=== PATIENT | female | born 1985 | race Caucasian/White ===

== ENCOUNTER → 2017-12-15 | Outpatient (CLI) | payer BC ==
[~2017-12-15] MED LIST: AMOX875 PO; ASPI325 PO; B Complete1 EACH PO; BIRTHCONTROL; Bactrim Ds Tab1 EACH PO; CLIN300 PO; CRUTCH4 USE; CYCL10 PO; FLAX PO; HYDACE5 PO; KETO10 PO; LAMO50 PO; METF500C PO; METO50 PO; NAPR500 PO; OXYACE5T PO; PENVK500 PO; PROM25 PO; RANI150 PO; RXHYD5325 PO; RXHYDACE PO; RXTRAM50 PO; TRAM50 PO; Ultram50 MG PO; Women's Daily1 EACH PO; XARELTO10 MG PO
[2017-12-15 15:50] LABS: BASOPHILS ABSOLUTE AUTO 0.03 K/mm3 (0.00-0.23); BASOPHILS PERCENT AUTO 0 % (0-2); EOSINOPHILS ABSOLUTE AUTO 0.19 K/mm3 (0.00-0.68); EOSINOPHILS PERCENT AUTO 3 % (0-6); Hematocrit 38.8 % (33.0-51.0); Hemoglobin 11.7 g/dL (11.5-16.0); IMMATURE GRAN ABSOLUTE AUTO 0.03 K/mm3 (0.00-0.10); IMMATURE GRAN PERCENT AUTO 0 % (0-1); LYMPHOCYTES ABSOLUTE AUTO 1.88 K/mm3 (0.84-5.20); LYMPHOCYTES PERCENT AUTO 25 % (21-46); MONOCYTES ABSOLUTE AUTO 0.35 K/mm3 (0.16-1.47); MONOCYTES PERCENT AUTO 5 % (4-13); Mean Corpuscular HGB 24.3 pg (26.0-34.0); Mean Corpuscular HGB Conc 30.2 g/dL (31.5-36.5); Mean Corpuscular Volume 81 fL (80-100); Mean Platelet Volume 10.2 fL (9.1-12.4); NEUTROPHILS ABSOLUTE AUTO 4.94 K/mm3 (1.96-9.15); NEUTROPHILS PERCENT AUTO 67 % (41-73); Platelet Count 353 K/mm3 (150-400); RDW Coefficient Variation 15.4 % (11.7-14.2); RDW Standard Deviation 44.6 fL (35.1-46.3); Red Blood Cell Count 4.82 M/mm3 (3.80-5.20); White Blood Cell Count 7.42 K/mm3 (4.00-11.30)
[2017-12-15 18:36] LABS: Alanine Aminotransfer (ALT/SGP 26 U/L (12-78); Albumin, Blood 3.5 g/dL (3.4-5.0); Alk Phos 109 U/L (50-136); Anion Gap 6 mmol/L (6-16); Aspartate Aminotrans (AST/SGOT 17 U/L (12-37); Bilirubin, Total 0.3 mg/dL (0.1-1.0); Blood Urea Nitrogen 10 mg/dL (8-24); Bun/Creatinine Ratio 15.1 (12.0-20.0); CHOL/HDL RATIO 4.2; CO2, Blood 28 mmol/L (21-32); Calcium, Blood 8.4 mg/dL (8.5-10.1); Chloride, Blood 106 mmol/L (98-108); Cholesterol 173 mg/dL (50-200); Creatinine, Blood 0.66 mg/dL (0.40-1.00); Free Thyroxine 1.06 ng/dL (0.70-1.60); Globulin, Blood 3.4 g/dL (2.2-4.0); Glomerular Filtration Rate >60 (60-); Glucose, Blood 105 mg/dL (70-99); HDL Cholesterol 41 mg/dL (>39); LDL/HDL RATIO 2.8; Low Density Lipoprotein Chol 116 mg/dL (0-110); Potassium, Blood 4.4 mmol/L (3.5-5.5); Sodium, Blood 140 mmol/L (136-145); Total Protein, Blood 6.9 g/dL (6.4-8.2); Triglycerides 79 mg/dL (30-140); Very Low Density Lipoprot Chol 15 mg/dL (6-28)
== END ==
LOC: LAB SHORT 10:01
PROVIDERS: Nurse Practitioner Family
DX: Z13.1 Encounter for screening for diabetes mellitus (principal); D50.9 Iron deficiency anemia, unspecified; R73.09 Other abnormal glucose
CPT/HCPCS: 80053; 80061; 82728; 83036; 84439; 84443; 85025

== ENCOUNTER → 2018-12-26 | Outpatient (CLI) | payer BC ==
[2018-12-26 12:37] LABS: Percent Saturation 12.3 % (15.0-50.0)
== END | disposition home or self-care (01) ==
LOC: LAB 12:10 → LAB SHORT 12:10
PROVIDERS: Nurse Practitioner Family
DX: R79.89 Other specified abnormal findings of blood chemistry (principal)
CPT/HCPCS: 82607; 82728; 83540; 83550

== ENCOUNTER → 2020-01-10 | Outpatient (CLI) | payer BC, OTHER ==
[~2020-01-10] MED LIST changes: +PROG100 PO
[2020-01-17 11:09] LABS: COTININE None Detected (.); NICOTINE None Detected (.)
== END | disposition home or self-care (01) ==
LOC: LAB SHORT 14:07 → OLS 14:07 → EDSTATUS 01-08 10:45 → LAB FUT 01-08 10:45
PROVIDERS: Surgery
DX: E66.01 Morbid (severe) obesity due to excess calories (principal); Z68.41 Body mass index [BMI] 40.0-44.9, adult
CPT/HCPCS: G0480

== ENCOUNTER 2020-04-22 10:19 | Day surgery (SDC) | payer BC, OTHER ==
[~2020-04-22] VITALS: Ht 177.8 cm; Wt 127.8 kg
== END 2020-04-22 12:00 | disposition home or self-care (01) ==
LOC: ORSCSDS 10:19
PROVIDERS: Internal Medicine Gastroenterology
PROC: 0DB68ZX Excision of Stomach, Via Natural or Artificial Opening Endoscopic, Diagnostic (ICD-10-PCS; principal; 2020-04-22 11:45)
DX: Z01.818 Encounter for other preprocedural examination (principal); R00.0 Tachycardia, unspecified; K22.2 Esophageal obstruction; G47.30 Sleep apnea, unspecified; E66.01 Morbid (severe) obesity due to excess calories; Z68.41 Body mass index [BMI] 40.0-44.9, adult; E11.9 Type 2 diabetes mellitus without complications; Z87.891 Personal history of nicotine dependence; Z79.84 Long term (current) use of oral hypoglycemic drugs; Z79.899 Other long term (current) drug therapy
CPT/HCPCS: 82947; 88305; 88342; J2704; J7120

== ENCOUNTER 2020-09-01 09:23 | Inpatient (IN) | payer BC ==
[~2020-09-01] VITALS: Ht 177.8 cm; Wt 114.3 kg
[~2020-09-01 09:23] MED LIST changes: +CENTRUM SILVER1 EAC2 PO; +METF500 PO; -METF500C PO; +Percocet 5-3251 EACH PO; +VITAMIN D325 MC3 PO; +Vitamin B Comple1 EA PO; +XARELTO20 MG PO
[2020-09-01 10:44] LABS: BASOPHILS ABSOLUTE AUTO 0.04 K/mm3 (0.00-0.23); BASOPHILS PERCENT AUTO 0 % (0-2); EOSINOPHILS ABSOLUTE AUTO 0.26 K/mm3 (0.00-0.68); EOSINOPHILS PERCENT AUTO 2 % (0-6); Hemoglobin 10.4 g/dL (11.5-16.0); IMMATURE GRAN ABSOLUTE AUTO 0.06 K/mm3 (0.00-0.10); IMMATURE GRAN PERCENT AUTO 0 % (0-1); LYMPHOCYTES ABSOLUTE AUTO 0.76 K/mm3 (0.84-5.20); LYMPHOCYTES PERCENT AUTO 6 % (21-46); MONOCYTES ABSOLUTE AUTO 0.58 K/mm3 (0.16-1.47); MONOCYTES PERCENT AUTO 4 % (4-13); Mean Corpuscular HGB Conc 30.6 g/dL (31.5-36.5); Mean Corpuscular Volume 85 fL (80-100); Mean Platelet Volume 9.5 fL (9.1-12.4); NEUTROPHILS ABSOLUTE AUTO 11.69 K/mm3 (1.96-9.15); NEUTROPHILS PERCENT AUTO 87 % (41-73); Platelet Count 310 K/mm3 (150-400); RDW Coefficient Variation 13.7 % (11.7-14.2); RDW Standard Deviation 42.9 fL (35.1-46.3); White Blood Cell Count 13.39 K/mm3 (4.00-11.30)
[2020-09-01 10:56] LABS: Alanine Aminotransfer (ALT/SGP 18 U/L (12-78); Albumin, Blood 3.6 g/dL (3.4-5.0); Albumin/Globulin Ratio 0.9 (0.8-1.8); Alk Phos 101 U/L (50-136); Anion Gap 8 mmol/L (6-16); Aspartate Aminotrans (AST/SGOT 11 U/L (12-37); Bilirubin, Total 0.7 mg/dL (0.1-1.0); Blood Urea Nitrogen 11 mg/dL (8-24); Bun/Creatinine Ratio 16.1 (12.0-20.0); CO2, Blood 23 mmol/L (21-32); Calcium, Blood 8.9 mg/dL (8.5-10.1); Chloride, Blood 109 mmol/L (98-108); Creatinine, Blood 0.69 mg/dL (0.40-1.00); Glomerular Filtration Rate >60 (60-); Glucose, Blood 127 mg/dL (70-99); Potassium, Blood 3.8 mmol/L (3.5-5.5); Sodium, Blood 140 mmol/L (136-145); Total Protein, Blood 7.6 g/dL (6.4-8.2)
[2020-09-01] MEDS ORDERED: XARELTO20 MG PO (11:42)
[2020-09-01 13:50] LABS: BASOPHILS ABSOLUTE AUTO 0.03 K/mm3 (0.00-0.23); BASOPHILS PERCENT AUTO 0 % (0-2); EOSINOPHILS ABSOLUTE AUTO 0.17 K/mm3 (0.00-0.68); EOSINOPHILS PERCENT AUTO 1 % (0-6); Hematocrit 31.8 % (33.0-51.0); Hemoglobin 9.6 g/dL (11.5-16.0); IMMATURE GRAN PERCENT AUTO 1 % (0-1); LYMPHOCYTES ABSOLUTE AUTO 1.31 K/mm3 (0.84-5.20); LYMPHOCYTES PERCENT AUTO 10 % (21-46); MONOCYTES ABSOLUTE AUTO 0.56 K/mm3 (0.16-1.47); MONOCYTES PERCENT AUTO 4 % (4-13); Mean Corpuscular HGB 25.9 pg (26.0-34.0); Mean Corpuscular HGB Conc 30.2 g/dL (31.5-36.5); Mean Corpuscular Volume 86 fL (80-100); Mean Platelet Volume 9.3 fL (9.1-12.4); NEUTROPHILS ABSOLUTE AUTO 11.27 K/mm3 (1.96-9.15); NEUTROPHILS PERCENT AUTO 84 % (41-73); Platelet Count 306 K/mm3 (150-400); RDW Coefficient Variation 13.7 % (11.7-14.2); RDW Standard Deviation 43.3 fL (35.1-46.3); Red Blood Cell Count 3.71 M/mm3 (3.80-5.20); White Blood Cell Count 13.44 K/mm3 (4.00-11.30)
[2020-09-01 14:32] LABS: Alanine Aminotransfer (ALT/SGP 23 U/L (12-78); Albumin, Blood 3.1 g/dL (3.4-5.0); Albumin/Globulin Ratio 0.8 (0.8-1.8); Alk Phos 101 U/L (50-136); Anion Gap 9 mmol/L (6-16); Aspartate Aminotrans (AST/SGOT 8 U/L (12-37); Bilirubin, Total 0.6 mg/dL (0.1-1.0); Blood Urea Nitrogen 11 mg/dL (8-24); Bun/Creatinine Ratio 14.8 (12.0-20.0); CO2, Blood 25 mmol/L (21-32); Calcium, Blood 8.5 mg/dL (8.5-10.1); Chloride, Blood 108 mmol/L (98-108); Creatinine, Blood 0.74 mg/dL (0.40-1.00); Globulin, Blood 3.8 g/dL (2.2-4.0); Glomerular Filtration Rate >60 (60-); Glucose, Blood 124 mg/dL (70-99); Potassium, Blood 3.6 mmol/L (3.5-5.5); Sodium, Blood 142 mmol/L (136-145); Total Protein, Blood 6.9 g/dL (6.4-8.2)
[2020-09-01 14:42] LABS: C-REACTIVE PROTEIN, EXT RANGE >19.000 mg/dL (0.000-0.300)
--- NOTE | 2020-09-01 17:42 | NUR ---
GRACE ARDON IN TO SEE PT AT ABOUT 1550, WOUND HAS PURLENT DRAINAGE. SURGICAL SITE REDRESSED BY REVA. PLAN FOR PT NPO AT THIS TIME IN ANTICIPATION FOR I&D.
--- NOTE | 2020-09-01 17:45 | NUR ---
AT 1658 PT ORAL TEMP 103.1. TORADOL AND PERCOCET GIVEN. DR. DOMINIQUE NOTIFIED, SEE NEW ORDER FOR HOSPITALIST. DR. JACQUES IN TO SEE PT AT ABOUT 1710. ANTIBIOTIC STARTED. PT TEMP CURRENTLY 101.2, PT STATED "FEELING BETTER". WILL CTM.
[2020-09-01 18:39] LABS: Percent Saturation 4.2 % (15.0-50.0)
[2020-09-02 03:57] LABS: BASOPHILS ABSOLUTE AUTO 0.03 K/mm3 (0.00-0.23); BASOPHILS PERCENT AUTO 0 % (0-2); EOSINOPHILS ABSOLUTE AUTO 0.51 K/mm3 (0.00-0.68); EOSINOPHILS PERCENT AUTO 4 % (0-6); Hematocrit 28.6 % (33.0-51.0); Hemoglobin 8.6 g/dL (11.5-16.0); IMMATURE GRAN ABSOLUTE AUTO 0.07 K/mm3 (0.00-0.10); IMMATURE GRAN PERCENT AUTO 1 % (0-1); LYMPHOCYTES ABSOLUTE AUTO 1.72 K/mm3 (0.84-5.20); LYMPHOCYTES PERCENT AUTO 14 % (21-46); MONOCYTES ABSOLUTE AUTO 1.15 K/mm3 (0.16-1.47); MONOCYTES PERCENT AUTO 9 % (4-13); Mean Corpuscular HGB 25.7 pg (26.0-34.0); Mean Corpuscular HGB Conc 30.1 g/dL (31.5-36.5); Mean Corpuscular Volume 86 fL (80-100); Mean Platelet Volume 9.6 fL (9.1-12.4); NEUTROPHILS ABSOLUTE AUTO 9.07 K/mm3 (1.96-9.15); NEUTROPHILS PERCENT AUTO 72 % (41-73); Platelet Count 275 K/mm3 (150-400); RDW Coefficient Variation 13.6 % (11.7-14.2); RDW Standard Deviation 42.7 fL (35.1-46.3); Red Blood Cell Count 3.34 M/mm3 (3.80-5.20); White Blood Cell Count 12.55 K/mm3 (4.00-11.30)
[2020-09-02 04:16] LABS: Alanine Aminotransfer (ALT/SGP 31 U/L (12-78); Albumin, Blood 2.7 g/dL (3.4-5.0); Albumin/Globulin Ratio 0.7 (0.8-1.8); Alk Phos 103 U/L (50-136); Anion Gap 7 mmol/L (6-16); Aspartate Aminotrans (AST/SGOT 20 U/L (12-37); Bilirubin, Total 0.6 mg/dL (0.1-1.0); Blood Urea Nitrogen 13 mg/dL (8-24); Bun/Creatinine Ratio 17.8 (12.0-20.0); CO2, Blood 26 mmol/L (21-32); Calcium, Blood 8.2 mg/dL (8.5-10.1); Chloride, Blood 108 mmol/L (98-108); Creatinine, Blood 0.73 mg/dL (0.40-1.00); Globulin, Blood 3.8 g/dL (2.2-4.0); Glomerular Filtration Rate >60 (60-); Glucose, Blood 113 mg/dL (70-99); Potassium, Blood 3.5 mmol/L (3.5-5.5); Sodium, Blood 141 mmol/L (136-145); Total Protein, Blood 6.5 g/dL (6.4-8.2)
--- NOTE | 2020-09-02 06:40 | NUR ---
PT T-MAX 101.5, OTHER VSS. DRESSING CHANGED X1, WOUND DRNG SS PURULANT FLUID. PT NPO POST MIDNIGHT FOR PLAN FOR I&D TODAY. PAIN MGD PER EMAR W/REP RELIEF. PT UP OOB INDEP, MERLE WELL. IVF AND ABX CONT PER ORDERS.
--- NOTE | 2020-09-02 15:43 | NUR ---
PT TAKEN TO DAY SURGERY FOR PROCEDURE, SALINE LOCKED, ALL JEWELERY REMOVED AND LEFT IN SPECIMEN CUP IN ROOM, PT KEPT CELL PHONE STATING HER WOULD GET IT FROM HER IN PRE-OP AREA.
--- NOTE | 2020-09-02 16:05 | NUR ---
History, Chart, Medications and Allergies reviewed before start of procedure.Lungs clear T/O to Auscultation. Patient confirms NPO status and agrees with scheduled surgery. Pre-Op teaching done. Pt verbalizes understanding. Patient States Post-Procedure ride home has been arranged. THE PATIENT WAS BROUGTH TO D/S FROM HER ROOM FOR HER PROCEDURE.
--- NOTE | 2020-09-02 18:16 | NUR ---
09/02/20 181 Deo Asencio PT ON SCHEDULED ANTIBIOTICS
--- NOTE | 2020-09-02 19:10 | NUR ---
PT BACK FROM PACU, INITIAL POST OP VITALS COMPLETE & STABLE, PT REPORTS PAIN TOLERABLE, OFFERING CLEAR LIQUIDS, WOUND VAC IN PLACE W/ NO LEAKS.
[2020-09-02 20:26] LABS: Vancomycin, Trough 11.5 ug/mL (5.0-10.0)
[2020-09-03 04:40] LABS: BASOPHILS ABSOLUTE AUTO 0.01 K/mm3 (0.00-0.23); BASOPHILS PERCENT AUTO 0 % (0-2); EOSINOPHILS PERCENT AUTO 0 % (0-6); Hematocrit 27.7 % (33.0-51.0); Hemoglobin 8.3 g/dL (11.5-16.0); IMMATURE GRAN ABSOLUTE AUTO 0.03 K/mm3 (0.00-0.10); IMMATURE GRAN PERCENT AUTO 0 % (0-1); LYMPHOCYTES ABSOLUTE AUTO 0.94 K/mm3 (0.84-5.20); LYMPHOCYTES PERCENT AUTO 13 % (21-46); MONOCYTES ABSOLUTE AUTO 0.18 K/mm3 (0.16-1.47); MONOCYTES PERCENT AUTO 3 % (4-13); Mean Corpuscular HGB 25.6 pg (26.0-34.0); Mean Corpuscular Volume 86 fL (80-100); Mean Platelet Volume 9.6 fL (9.1-12.4); NEUTROPHILS ABSOLUTE AUTO 5.99 K/mm3 (1.96-9.15); NEUTROPHILS PERCENT AUTO 84 % (41-73); Platelet Count 286 K/mm3 (150-400); RDW Coefficient Variation 13.5 % (11.7-14.2); RDW Standard Deviation 42.5 fL (35.1-46.3); Red Blood Cell Count 3.24 M/mm3 (3.80-5.20); White Blood Cell Count 7.15 K/mm3 (4.00-11.30)
--- NOTE | 2020-09-03 05:03 | NUR ---
SHIFT SUMMARY POD#1. AAOX4. DISCOMFORT CONTROLLED WITH 2 NORCO Q4H + TORADOL X1. NO NAUSEA/EMESIS. WOUND VAC TO LEFT HIP C/D/I, SCANT AMOUNT SS DRAINAGE IN TUBE. PPP, DENIES N/T BLE, MOVES TOES WELL. UP TO RESTROOM SBA WITH FWW, TOLERATES WELL. GOOD PO INTAKE + OUTPUT. IVF + ABX PER ORDERS. PT CURRENTLY RESTING IN BED WITH CALL LIGHT IN REACH.
[2020-09-03 05:17] LABS: Anion Gap 8 mmol/L (6-16); Blood Urea Nitrogen 13 mg/dL (8-24); Bun/Creatinine Ratio 21.6 (12.0-20.0); CO2, Blood 24 mmol/L (21-32); Calcium, Blood 8.6 mg/dL (8.5-10.1); Chloride, Blood 110 mmol/L (98-108); Glomerular Filtration Rate >60 (60-); Glucose, Blood 130 mg/dL (70-99); Potassium, Blood 4.2 mmol/L (3.5-5.5); Sodium, Blood 142 mmol/L (136-145)
--- NOTE | 2020-09-03 17:18 | NUR ---
SHIFT SUMMARY L HIP I&D POD1, A/O X4, VSS, WOUND VAC IN PLACE OVER INCISION, SMALL AMT OF SS DRAINAGE DURING SHIFT, TOLERATING PO, VOIDING WELL, AMBULATING W/ 1 PERSON STANDBY ASSIST, NO POST OP BM YET, ADMINISTERING BOWEL CARE PER ORDERS, PAIN WELL CONTROLLED PER EMAR. CALL LIGHT IN REACH, WILL CONTINUE TO MONITOR AND REPORT TO ONCOMING NOC RN.
[2020-09-03 20:33] LABS: Vancomycin, Trough 19.4 ug/mL (5.0-10.0)
--- NOTE | 2020-09-04 04:36 | NUR ---
SHIFT ASSESMENT PT A/O X4, IND IN ROOM. WOUND VAC IN PLACE, FOAM COMPRESSED. PT TOLERATING PO INTAKE AND VOIDING. REPORTS NO BM IN A FEW DAYS; BOWEL CARE PER ORDERS. PT HAS BEEN USING CPAP AT NIGHT. POWERGLIDE PLACED THIS SHIFT PT HAS HAD MULTIPLE IV'S FAIL THIS HOSPITAL STAY. PAIN MANAGED WITH PO PAIN MED AND TORADOL PER ORDERS.
[2020-09-04 05:17] LABS: BASOPHILS ABSOLUTE AUTO 0.04 K/mm3 (0.00-0.23); BASOPHILS PERCENT AUTO 1 % (0-2); EOSINOPHILS ABSOLUTE AUTO 0.34 K/mm3 (0.00-0.68); EOSINOPHILS PERCENT AUTO 5 % (0-6); Hematocrit 25.6 % (33.0-51.0); Hemoglobin 7.7 g/dL (11.5-16.0); IMMATURE GRAN ABSOLUTE AUTO 0.02 K/mm3 (0.00-0.10); IMMATURE GRAN PERCENT AUTO 0 % (0-1); LYMPHOCYTES ABSOLUTE AUTO 2.84 K/mm3 (0.84-5.20); LYMPHOCYTES PERCENT AUTO 42 % (21-46); MONOCYTES ABSOLUTE AUTO 0.33 K/mm3 (0.16-1.47); MONOCYTES PERCENT AUTO 5 % (4-13); Mean Corpuscular HGB 25.8 pg (26.0-34.0); Mean Corpuscular HGB Conc 30.1 g/dL (31.5-36.5); Mean Corpuscular Volume 86 fL (80-100); Mean Platelet Volume 9.3 fL (9.1-12.4); NEUTROPHILS ABSOLUTE AUTO 3.14 K/mm3 (1.96-9.15); NEUTROPHILS PERCENT AUTO 47 % (41-73); NRBC ABSOLUTE 0.02 K/mm3 (0.00-0.02); NRBC Auto 0.3 /100 WBC (0.0-0.2); Platelet Count 309 K/mm3 (150-400); RDW Coefficient Variation 13.6 % (11.7-14.2); RDW Standard Deviation 42.9 fL (35.1-46.3); Red Blood Cell Count 2.98 M/mm3 (3.80-5.20); White Blood Cell Count 6.71 K/mm3 (4.00-11.30)
[2020-09-04 05:47] LABS: Alanine Aminotransfer (ALT/SGP 29 U/L (12-78); Albumin, Blood 2.6 g/dL (3.4-5.0); Albumin/Globulin Ratio 0.7 (0.8-1.8); Alk Phos 95 U/L (50-136); Anion Gap 5 mmol/L (6-16); Aspartate Aminotrans (AST/SGOT 8 U/L (12-37); Bilirubin, Total 0.2 mg/dL (0.1-1.0); Blood Urea Nitrogen 15 mg/dL (8-24); Bun/Creatinine Ratio 21.4 (12.0-20.0); CO2, Blood 27 mmol/L (21-32); Calcium, Blood 8.6 mg/dL (8.5-10.1); Chloride, Blood 112 mmol/L (98-108); Globulin, Blood 3.5 g/dL (2.2-4.0); Glomerular Filtration Rate >60 (60-); Glucose, Blood 96 mg/dL (70-99); Potassium, Blood 3.9 mmol/L (3.5-5.5); Sodium, Blood 144 mmol/L (136-145); Total Protein, Blood 6.1 g/dL (6.4-8.2)
--- NOTE | 2020-09-04 18:06 | NUR ---
SUMMARY PT TEARFUL AFTER DR DOMINIQUE DISCUSSED WITH HER THAT SHE WILL NEED TO HAVE FURTHER LEFT HIP DEBRIDEMENT. PT CONCERNED REGARDING NOT BEING ABL TO WORK AND ABILITY TO BE ABLE TO PAY BILLS. WOUNDVAC IN PLACE AND MAINTAINING SUCTION TO LEFT HOP. SCANT BLOODY DRAINAGE. PT IS AWARE OFPLAN FOR NPO AFTER MIDNIGHT AND TO OR IN THE MORNING, PT AMBULATING IN ROOM AND HALLS
[2020-09-05 05:24] LABS: BASOPHILS ABSOLUTE AUTO 0.03 K/mm3 (0.00-0.23); BASOPHILS PERCENT AUTO 0 % (0-2); EOSINOPHILS ABSOLUTE AUTO 0.76 K/mm3 (0.00-0.68); EOSINOPHILS PERCENT AUTO 11 % (0-6); Hemoglobin 7.7 g/dL (11.5-16.0); IMMATURE GRAN ABSOLUTE AUTO 0.05 K/mm3 (0.00-0.10); IMMATURE GRAN PERCENT AUTO 1 % (0-1); LYMPHOCYTES ABSOLUTE AUTO 2.65 K/mm3 (0.84-5.20); LYMPHOCYTES PERCENT AUTO 40 % (21-46); MONOCYTES ABSOLUTE AUTO 0.39 K/mm3 (0.16-1.47); MONOCYTES PERCENT AUTO 6 % (4-13); Mean Corpuscular HGB Conc 30.8 g/dL (31.5-36.5); Mean Corpuscular Volume 85 fL (80-100); Mean Platelet Volume 9.1 fL (9.1-12.4); NEUTROPHILS ABSOLUTE AUTO 2.82 K/mm3 (1.96-9.15); NEUTROPHILS PERCENT AUTO 42 % (41-73); Platelet Count 304 K/mm3 (150-400); RDW Coefficient Variation 13.6 % (11.7-14.2); RDW Standard Deviation 42.5 fL (35.1-46.3); Red Blood Cell Count 2.96 M/mm3 (3.80-5.20)
[2020-09-05 05:45] LABS: Alanine Aminotransfer (ALT/SGP 23 U/L (12-78); Albumin, Blood 2.5 g/dL (3.4-5.0); Albumin/Globulin Ratio 0.8 (0.8-1.8); Alk Phos 89 U/L (50-136); Anion Gap 3 mmol/L (6-16); Aspartate Aminotrans (AST/SGOT 8 U/L (12-37); Bilirubin, Total 0.2 mg/dL (0.1-1.0); Blood Urea Nitrogen 11 mg/dL (8-24); Bun/Creatinine Ratio 16.8 (12.0-20.0); CO2, Blood 30 mmol/L (21-32); Calcium, Blood 8.1 mg/dL (8.5-10.1); Chloride, Blood 111 mmol/L (98-108); Creatinine, Blood 0.66 mg/dL (0.40-1.00); Globulin, Blood 3.2 g/dL (2.2-4.0); Glomerular Filtration Rate >60 (60-); Glucose, Blood 91 mg/dL (70-99); Potassium, Blood 3.7 mmol/L (3.5-5.5); Sodium, Blood 144 mmol/L (136-145); Total Protein, Blood 5.7 g/dL (6.4-8.2)
--- NOTE | 2020-09-05 07:43 | NUR ---
SUMMARY PT WITH NO ACUTE CHANGES TONIGHT. VERB ADEQUATE PAIN CONTROL. PLANS FOR OR TODYA. NPO AT THIS TIME.
--- NOTE | 2020-09-05 13:38 | NUR ---
PT TO OR. SENT 1330 ABX W/WIRE DRAWING MACHINE TENDER.
--- NOTE | 2020-09-05 16:42 | NUR ---
PT BACK TO ROOM FROM PACU A&OX4. USED BSC AND VOIDED 900 ML. MAINTAINED TOE TOUCH WB PRECAUTIONS. PT REPORTED PAIN 7/10 AFTER GETTING UP TO BSC. MEDICATED PER ORDERS FOR PAIN. WOUND VAC TO L ANTERIOR HIP COMPRESSED. NO DRAINAGE NOTED IN COLLECTION CANISTER. VSS. CALL LIGHT IN REACH.
--- NOTE | 2020-09-06 04:26 | NUR ---
SHIFT SUMMARY: POD 1 L HIP I+D PT ALERT AND ORIENTED X4 WHILE AWAKE. SHE HAS BEEN SLEEPING MAJORITY OF THE SHIFT. PAIN IS MANAGED WITH TORADOL AND PERCOCET. PT IS TOLERATING PO AND VOIDING. PT REPORTS NO BM YET BUT BM SUPPORT IS IN EFFECT. PT IS CURRENTLY USING CPAP WHEN SLEEPING. POWERGLIDE IS WNL. WOUND VAC IS IN PLACE WITH FOAM COMPRESSED. PT USES CALL LIGHT APPROPRIATELY AND IS WITHIN REACH. THE PLAN IS TO HAVE CHEW CONSULT AND IV ABX.
[2020-09-06 05:48] LABS: BASOPHILS ABSOLUTE AUTO 0.03 K/mm3 (0.00-0.23); BASOPHILS PERCENT AUTO 0 % (0-2); EOSINOPHILS ABSOLUTE AUTO 0.11 K/mm3 (0.00-0.68); EOSINOPHILS PERCENT AUTO 1 % (0-6); Hematocrit 24.8 % (33.0-51.0); Hemoglobin 7.6 g/dL (11.5-16.0); IMMATURE GRAN ABSOLUTE AUTO 0.21 K/mm3 (0.00-0.10); IMMATURE GRAN PERCENT AUTO 2 % (0-1); LYMPHOCYTES ABSOLUTE AUTO 2.28 K/mm3 (0.84-5.20); LYMPHOCYTES PERCENT AUTO 21 % (21-46); MONOCYTES ABSOLUTE AUTO 0.58 K/mm3 (0.16-1.47); MONOCYTES PERCENT AUTO 5 % (4-13); Mean Corpuscular HGB 26.1 pg (26.0-34.0); Mean Corpuscular HGB Conc 30.6 g/dL (31.5-36.5); Mean Corpuscular Volume 85 fL (80-100); Mean Platelet Volume 9.3 fL (9.1-12.4); NEUTROPHILS PERCENT AUTO 71 % (41-73); Platelet Count 384 K/mm3 (150-400); RDW Coefficient Variation 13.2 % (11.7-14.2); RDW Standard Deviation 40.8 fL (35.1-46.3); Red Blood Cell Count 2.91 M/mm3 (3.80-5.20); White Blood Cell Count 10.91 K/mm3 (4.00-11.30)
[2020-09-06 05:58] LABS: Anion Gap 4 mmol/L (6-16); Blood Urea Nitrogen 7 mg/dL (8-24); Bun/Creatinine Ratio 12.5 (12.0-20.0); CO2, Blood 31 mmol/L (21-32); Calcium, Blood 8.5 mg/dL (8.5-10.1); Chloride, Blood 108 mmol/L (98-108); Creatinine, Blood 0.56 mg/dL (0.40-1.00); Glomerular Filtration Rate >60 (60-); Glucose, Blood 103 mg/dL (70-99); Potassium, Blood 3.9 mmol/L (3.5-5.5); Sodium, Blood 143 mmol/L (136-145)
--- NOTE | 2020-09-06 19:47 | NUR ---
SUMMARY: NO ACUTE CHANGE TODAY. PT IS A/O, VSS, UP INDEP IN ROOM. SURGICAL SITE/WOUND VAC WNL. MINIMAL TO NO DRAINAGE FROM WOUND VAC. PT PAIN MANAGED WITH [address] MARTINES, PLAN IS FOR REPEAT I&D TOMORROW, NPO AT 0000. REPORT GIVEN TO KAREN QUINTANILLA.
--- NOTE | 2020-09-06 21:51 | NUR ---
NEW MED IBUPROFEN 600MG PT REQUESTING IBUPROFEN TO HELP WITH PAIN ON L HIP. TORADOL HAS BEEN DISCONTINUE (REACHED MAX 5 DAYS). SHE REPORTS TORADOL HAD HELPED WITH PAIN. PT HAS HX PEPTIC ULCER WHEN SHE WAS 17, STATES THAT SHE HAS BEEN TAKING IBUPROFEN AT HOME FOR PAIN, DENIES PROBLEM/ULCER SX.I CALLED DR. PEDRO TO REQUEST AN ORDER, NOTIFIED ABOUT HER HX AND PT REQUEST. IBUPROFEN WAS GIVEN TO PT WITH FOOD. WILL MONITOR FOR ANY CHANGES.
--- NOTE | 2020-09-06 22:45 | NUR ---
PT REPORTS PAIN HAS IMPROVED. 02/13 AFTER IBUPROFEN 600MG. SHE DENIES STOMACH PROBLEMS/DISTRESS, NAUSEA AND VOMITING. PT APPEARED COMFORTABLE IN BED, GETTING READY TO SLEEP.
[2020-09-07 03:16] LABS: Hematocrit 25.7 % (33.0-51.0); Hemoglobin 7.6 g/dL (11.5-16.0); Mean Corpuscular HGB 25.5 pg (26.0-34.0); Mean Corpuscular HGB Conc 29.6 g/dL (31.5-36.5); Mean Corpuscular Volume 86 fL (80-100); Mean Platelet Volume 9.2 fL (9.1-12.4); Platelet Count 318 K/mm3 (150-400); RDW Coefficient Variation 13.7 % (11.7-14.2); Red Blood Cell Count 2.98 M/mm3 (3.80-5.20)
[2020-09-07 03:30] LABS: Anion Gap 3 mmol/L (6-16); Blood Urea Nitrogen 10 mg/dL (8-24); Bun/Creatinine Ratio 15.9 (12.0-20.0); CO2, Blood 31 mmol/L (21-32); Calcium, Blood 8.3 mg/dL (8.5-10.1); Chloride, Blood 109 mmol/L (98-108); Creatinine, Blood 0.63 mg/dL (0.40-1.00); Glomerular Filtration Rate >60 (60-); Glucose, Blood 90 mg/dL (70-99); Potassium, Blood 3.8 mmol/L (3.5-5.5); Sodium, Blood 143 mmol/L (136-145)
--- NOTE | 2020-09-07 05:21 | NUR ---
SHIFT SUMMARY POD2 OF I&D OF LEFT HIP DUE TO INFECTION. PT A0X4. VSS. PT DENIES CP/PRESSURE, SOB, NUMBNESS, TINGLING AND DIZZINESS. PT WEARS CPAP AT NIGHT R/T HX SLEEP APNEA. CONT BIOX ON BEDSIDE, BUT PT REFUSE TO USE IT. PT TOLERATING PO INTAKE LAST NIGHT DENIES NAUSEA AND VOMITING. PT REPORTS BOWEL MOV'T AFTER RECIEVING BOWEL PREP. PT STS MED BROWN FORMED STOOL. NPO AFTER MIDNIGHT ANTICIPATING SURG PROC TOMORROW. PT REPORT L HIP SWELLING HAS INCREASED, WOUND VACC ON 120 ON L HIP INCISION. WOUND VACC COMPRESSED AND INTACT. PT HAS VERY MINIMAL SEROSANG DRAINAGE. PAIN IS WELL CONTROLLED. I CALLED DR. PEDRO LAST NIGHT TO REQUEST FOR IBUPROFEN 600MG PT REQUESTED. PT HAS HX PUD WHEN SHE WAS 17, BUT REPORTS TAKING IBUPROFEN AT HOME. NOTIFIED DR. PEDRO ABOUT HX. MED WAS ORDERED. IBUPROFEN PO WAS ADMINSTERED WITH FOOD. PT DENIES NAUSEA AND NO STOMACH DISTRESS. PT REPORTS IMPROVEMENT WITH PAIN AFTER TAKING IBUPROFEN. ANTIBIOTICS WAS ALSO ADMINSTERED.
--- NOTE | 2020-09-07 14:04 | NUR ---
Patient up to Ambulate independently. Gait steady. History, Chart, Medications and Allergies reviewed before start of procedure.Lungs clear T/O to Auscultation. Patient confirms NPO status and agrees with scheduled surgery. TYPE AND SCREEN DRAWN ALONG WITH SED RATE. WOUND VAC REMAINS CONNECTED.
--- NOTE | 2020-09-07 16:01 | NUR ---
09/07/20 1601 Nacho Vang DUBON CATH PLACED PER JANET POND. PATIENT ON SCHEDULED ANTIBIOTICS.
--- NOTE | 2020-09-07 17:49 | NUR ---
SHIFT SUMMARY PT TO OR AT APROX 1430. PREVIOUSLY HAD DONE WELL T/O SHIFT. INDEPENDENT WITH AMBULATION. PAIN MANAGED PER EMAR.
--- NOTE | 2020-09-07 19:20 | NUR ---
PT BACK TO ROOM FROM PACU AT APPOX 1920. PT A&O X4. VS STABLE. O2 98% ON 3LO2 VIA NC. PT DENIES SOB. PT ABLE TO WIGGLE TOES, DENIES N/T. BULKY GAUZE DRESSING IN PLACE TO LEFT HIP WITHOUT DRAINAGE NOTED. TWO HEMOVACS IN PLACE DRAINING SS FLUID. PT REPORTING PAIN IS TOLERABLE AT THIS TIME. FLUIDS INFUSING PER EMAR.
[2020-09-07 20:25] LABS: BASOPHILS ABSOLUTE AUTO 0.04 K/mm3 (0.00-0.23); BASOPHILS PERCENT AUTO 0 % (0-2); EOSINOPHILS PERCENT AUTO 1 % (0-6); Hematocrit 27.5 % (33.0-51.0); Hemoglobin 8.4 g/dL (11.5-16.0); IMMATURE GRAN ABSOLUTE AUTO 0.31 K/mm3 (0.00-0.10); IMMATURE GRAN PERCENT AUTO 2 % (0-1); LYMPHOCYTES ABSOLUTE AUTO 1.54 K/mm3 (0.84-5.20); LYMPHOCYTES PERCENT AUTO 11 % (21-46); MONOCYTES ABSOLUTE AUTO 0.34 K/mm3 (0.16-1.47); MONOCYTES PERCENT AUTO 3 % (4-13); Mean Corpuscular HGB 26.2 pg (26.0-34.0); Mean Corpuscular HGB Conc 30.5 g/dL (31.5-36.5); Mean Corpuscular Volume 86 fL (80-100); NEUTROPHILS ABSOLUTE AUTO 11.36 K/mm3 (1.96-9.15); NEUTROPHILS PERCENT AUTO 83 % (41-73); Platelet Count 373 K/mm3 (150-400); RDW Coefficient Variation 14.2 % (11.7-14.2); RDW Standard Deviation 44.1 fL (35.1-46.3); Red Blood Cell Count 3.21 M/mm3 (3.80-5.20); White Blood Cell Count 13.69 K/mm3 (4.00-11.30)
[2020-09-08 04:44] LABS: Hematocrit 23.2 % (33.0-51.0); Hemoglobin 7.1 g/dL (11.5-16.0)
--- NOTE | 2020-09-08 06:00 | NUR ---
SHIFT SUMMARY: PT POD#1 FOR I&D AND REVISION TO LEFT HIP. BULKY GAUZE DRESSING C/D/I. HEMOVAC X2 COMPRESSED AND SUCTIONING WELL. HEMOVACS LABELED #1 AND #2 WITH TAPE. DRAIN ONE WITH 20CC OUTPUT AND DRAIN TWO WITH 90CC OUTPUT. BOTH DRAINING SS FLUID. PT PAINFUL THIS SHIFT AND MEDICATED WITH 2 PEROCETS Q4 PER EMAR. FLUIDS AND ABX INFUSING. BP ON THE LOWER SIDE THIS SHIFT, HOWEVER PT STATES THIS IS NORMAL FOR HER. ASYMPTOMATIC. ALL OTHER VS WNL. PT MERLE PO AND DENIES N/V. DENIES N/T THROUGHOUT. PT ABLE TO WIGGLE TOES. CAP REFILL WNL WITH STRONG PULSE. DUBON REMOVED THIS MORNING AT APPROX 0455. WAITING FOR POST VOID.
--- NOTE | 2020-09-08 06:43 | NUR ---
HOSPITALIST NOTIFIED OF H&H THIS MORNING. NO NEW ORDERS AT THIS TIME. WILL CTM.
--- NOTE | 2020-09-08 17:46 | NUR ---
SHIFT SUMMARY PT POD 1 I&D L HIP. PT UP WITH PT AND TO SHOWER THIS SHIFT. AQUACEL DRESSING PLACED FOLLOWING SHOWER. HEMOVAC'S PATENT DRAINING SS FLUID APROX 90ML TOTAL THIS SHIFT FOR BOTH. PAIN MANAGED PER EMAR. PLAN IS TO DC HOME WITH 6 WEEKS IV ABX-PT WILL NEED PICC LINE PRIOR TO DC HOME.
[2020-09-08 18:35] LABS: BASOPHILS ABSOLUTE AUTO 0.02 K/mm3 (0.00-0.23); BASOPHILS PERCENT AUTO 0 % (0-2); EOSINOPHILS ABSOLUTE AUTO 0.87 K/mm3 (0.00-0.68); EOSINOPHILS PERCENT AUTO 9 % (0-6); Hematocrit 23.5 % (33.0-51.0); Hemoglobin 7.1 g/dL (11.5-16.0); IMMATURE GRAN ABSOLUTE AUTO 0.15 K/mm3 (0.00-0.10); IMMATURE GRAN PERCENT AUTO 2 % (0-1); LYMPHOCYTES ABSOLUTE AUTO 3.17 K/mm3 (0.84-5.20); LYMPHOCYTES PERCENT AUTO 31 % (21-46); MONOCYTES ABSOLUTE AUTO 0.47 K/mm3 (0.16-1.47); MONOCYTES PERCENT AUTO 5 % (4-13); Mean Corpuscular HGB 26.5 pg (26.0-34.0); Mean Corpuscular HGB Conc 30.2 g/dL (31.5-36.5); Mean Corpuscular Volume 88 fL (80-100); Mean Platelet Volume 9.6 fL (9.1-12.4); NEUTROPHILS PERCENT AUTO 54 % (41-73); Platelet Count 285 K/mm3 (150-400); RDW Coefficient Variation 15.2 % (11.7-14.2); RDW Standard Deviation 46.1 fL (35.1-46.3); Red Blood Cell Count 2.68 M/mm3 (3.80-5.20); White Blood Cell Count 10.08 K/mm3 (4.00-11.30)
[2020-09-09 04:46] LABS: BASOPHILS ABSOLUTE AUTO 0.02 K/mm3 (0.00-0.23); BASOPHILS PERCENT AUTO 0 % (0-2); EOSINOPHILS ABSOLUTE AUTO 1.27 K/mm3 (0.00-0.68); EOSINOPHILS PERCENT AUTO 14 % (0-6); Hematocrit 21.8 % (33.0-51.0); Hemoglobin 6.6 g/dL (11.5-16.0); IMMATURE GRAN ABSOLUTE AUTO 0.11 K/mm3 (0.00-0.10); IMMATURE GRAN PERCENT AUTO 1 % (0-1); LYMPHOCYTES ABSOLUTE AUTO 3.13 K/mm3 (0.84-5.20); LYMPHOCYTES PERCENT AUTO 34 % (21-46); MONOCYTES PERCENT AUTO 4 % (4-13); Mean Corpuscular HGB 26.4 pg (26.0-34.0); Mean Corpuscular HGB Conc 30.3 g/dL (31.5-36.5); Mean Corpuscular Volume 87 fL (80-100); Mean Platelet Volume 9.1 fL (9.1-12.4); NEUTROPHILS ABSOLUTE AUTO 4.17 K/mm3 (1.96-9.15); NEUTROPHILS PERCENT AUTO 46 % (41-73); Platelet Count 274 K/mm3 (150-400); RDW Standard Deviation 45.8 fL (35.1-46.3)
[2020-09-09 05:10] LABS: Anion Gap 3 mmol/L (6-16); Blood Urea Nitrogen 6 mg/dL (8-24); Bun/Creatinine Ratio 8.5 (12.0-20.0); CO2, Blood 32 mmol/L (21-32); Calcium, Blood 8.4 mg/dL (8.5-10.1); Chloride, Blood 107 mmol/L (98-108); Glomerular Filtration Rate >60 (60-); Glucose, Blood 83 mg/dL (70-99); Potassium, Blood 3.9 mmol/L (3.5-5.5); Sodium, Blood 142 mmol/L (136-145)
--- NOTE | 2020-09-09 05:14 | NUR ---
SHIFT SUMMARY: PT POD#2 FOR I&D AND REVISION TO LEFT HIP. AQUACEL DRESSING C/D/I. HEMOVAC #1 WITH 22CC FOR OUTPUT. HEMOVAC #2 WITH A TOTAL OF 15CC. BOTH DRAINING SS. PAIN BEING MANAGED WITH PERCOCET X2 AND IBUPROFEN PER EMAR. IV ABX INFUSING Q4. PT OUT OF BED TO BATHROOM WITH FWW INDPENDENTLY. PT REQUIRING MINIMAL ASSISTANCE TO GET BACK IN BED. VOIDING WELL. MERLE PO. DENIES N/V. NEW ORDER FOR PRBC'S THIS MORNING PER HOSPITALIST. ALSO PLAN FOR PLACEMENT OF PICC LINE TODAY FOR CONSUMER LOAN SPECIALIST ABX THERAPY.
--- NOTE | 2020-09-09 11:03 | NUR ---
THE AMPICILLIN GIVEN AT 0423 BY DOUGIE RN WAS STOPPED TO TRANSFUSE BLOOD. THE REMAINDER OF THE 0423 AMPICILLIN GIVEN AT ABOUT 0930 AFTER THE BLOOD TRANSFUSED. PHARMACY CALLED TO VERIFY WHEN TO GIVEN THE 0800 AMPICILLIN DOSE. PER PHARMACIST, GIVE THE 0800 DOSE NOW (AT 0930) SKIP THE 1200 DOSE, AND GIVE NEXT DOSE AT 1500 INSTEAD OF 1600. PLAN TO INFUSE WITH THESE INSTRUCTIONS. SEE EMAR.
--- NOTE | 2020-09-09 14:10 | NUR ---
PT IN NEED OF PICC LINE PLACEMENT. PLACED CALL TO NURSING ENVELOPE MACHINE ADJUSTER AND ATC THIS MORNING. ATC IS UNABLE TO INSERT ONE AT THIS TIME. CALL MADE TO ICU, AWAITING CALL BACK FROM PICC RN
--- NOTE | 2020-09-09 18:07 | NUR ---
SUMMARY: NO ACUTE CHANGE TODAY. VSS, A/O. BLOOD TRANSFUSED THIS AM. PT NOW HAS X2 AQUACEL DRESSINGS TO L HIP. PT ELEVATING AND ICING. ABLE TO WALK IN FOX WITH THERAPY. UNABLE TO PLACE PICC LINE TODAY, WITH MULTIPLE CALLS MADE. WILL PASS THIS INFO TO DOUGIE RN IN HOPES OF GETTING ONE. PLAN IS HOME TOMORROW WITH ABX INFUSIONS. NO SAFETY CONCERNS.
[2020-09-10 05:09] LABS: Hematocrit 24.8 % (33.0-51.0); Hemoglobin 7.4 g/dL (11.5-16.0); Mean Corpuscular HGB 26.1 pg (26.0-34.0); Mean Corpuscular HGB Conc 29.8 g/dL (31.5-36.5); Mean Corpuscular Volume 88 fL (80-100); Mean Platelet Volume 9.4 fL (9.1-12.4); Platelet Count 306 K/mm3 (150-400); RDW Coefficient Variation 15.9 % (11.7-14.2); RDW Standard Deviation 49.1 fL (35.1-46.3); Red Blood Cell Count 2.83 M/mm3 (3.80-5.20); White Blood Cell Count 10.57 K/mm3 (4.00-11.30)
--- NOTE | 2020-09-10 05:22 | NUR ---
SHIFT SUMMARY POD3 FOR I&D W/REVISION ON LEFT HIP. AOX4. VSS. NO CHANGE IN WOUND DRAINAGE. HGB HAS IMPROVED FROM, SEE EMR FOR LAB. PT IS ASYMPTOMATIC, DENIES FEELING ANEMIC. PAIN IS MANAGED, MED MD ORDERD. POLAR PACK IN PLACE TO HELP WITH SWELLING IN PAIN ON L HIP. PT DENIES NUMBNESS AND TINGLING. PT IS ON REG DIET, TOLERATING WELL. PT DENIES NAUSEA/VOMITING. SHE REPORTS PASSING FLATUS. POWERGLIDE ON TORI IS PATENT AND INFUSING BUT UNABLE TO DRAW BACK BLOOD. SHE MAY NEED A PICC LINE. SHE IS ALSO BEING TREATED W/ ABX. INDEPENDENT IN ROOM. WEARS CPAP AT NIGHT. ENC USE OF INCENTIV SPIR AND DEEP BREATHS.
--- NOTE | 2020-09-10 09:22 | NUR ---
PT LEFT UNIT AT ABOUT 0900 FOR PICC PLACEMENT
[2020-09-10] MEDS ORDERED: AMPICILLIN SODIU2 G1 IV (10:23)
--- NOTE | 2020-09-10 14:48 | NUR ---
DISCHARGE: PACKET PRINTED AND PT EDUCATED. PT SENT HOME WITH EXTRA AQUACEL DRESSINGS AND SCRIPTS. PT HAD PICC LINE PLACED TODAY AND DC'D WITH PICC FOR HOME ABX INFUSIONS. PT ALSO TO SEE HH AND THERAPY AT HOME, PT REPORTED TO ME THAT THE ABX WERE MAILED TO HER HOME AND WAITING FOR HER THERE. PT VERBALIZED UNDERSTANDING OF DC EDUCATION. LEFT UNIT AT ABOUT 1210 VIA WHEELCHAIR WITH DISCHARGE VOLUNTEER.
== END 2020-09-10 12:13 | disposition home or self-care (01) | DRG 857 ==
LOC: ER 09:23 → SURS 09:24
PROVIDERS: Emergency Medicine; Internal Medicine; ADMIT Orthopaedic Surgery
PROC: 0JBM0ZZ Excision of Left Upper Leg Subcutaneous Tissue and Fascia, Open Approach (ICD-10-PCS; principal; 2020-09-02 16:00)
PROC: 0JBM0ZZ Excision of Left Upper Leg Subcutaneous Tissue and Fascia, Open Approach (ICD-10-PCS; 2020-09-05)
PROC: 0SRB0EZ Replacement of Left Hip Joint with Articulating Spacer, Open Approach (ICD-10-PCS; 2020-09-07)
PROC: 0QD70ZZ Extraction of Left Upper Femur, Open Approach (ICD-10-PCS; 2020-09-07)
PROC: 02HV33Z Insertion of Infusion Device into Superior Vena Cava, Percutaneous Approach (ICD-10-PCS; 2020-09-10)
PROC: B548ZZA Ultrasonography of Superior Vena Cava, Guidance (ICD-10-PCS; 2020-09-10)
DX: T81.44XA Sepsis following a procedure, initial encounter (principal); T84.52XA Infection and inflammatory reaction due to internal left hip prosthesis, initial encounter; E11.9 Type 2 diabetes mellitus without complications; B95.2 Enterococcus as the cause of diseases classified elsewhere; K59.00 Constipation, unspecified; G47.33 Obstructive sleep apnea (adult) (pediatric); F31.9 Bipolar disorder, unspecified; D50.9 Iron deficiency anemia, unspecified; K27.9 Peptic ulcer, site unspecified, unspecified as acute or chronic, without hemorrhage or perforation; E66.01 Morbid (severe) obesity due to excess calories; Z68.36 Body mass index [BMI] 36.0-36.9, adult; Z87.891 Personal history of nicotine dependence; Z79.84 Long term (current) use of oral hypoglycemic drugs
CPT/HCPCS: 36415; 36430; 36569; 73502; 80048; 80053; 80202; 81025; 82728; 82947; 83540; 83550; 83605; 83735; 85014; 85018; 85025; 85027; 85651; 86140; 86850; 86900; 86901; 86923; 87040; 87070; 87075; 87077; 87186; 87205; 96365-59; 96366; 96367; 96375; 96376; 97116; 97161; 97530; 99284-25; A9270; C1713; C1751; C1776; G0378; J0171; J0290; J0690; J0696; J0735; J1100; J1170; J1650; J1885; J2250; J2370; J2405; J2704; J2710; J2795; J2916; J3010; J3370; J7030; J7050; J7120; P9016; U0004

== ENCOUNTER → 2020-09-14 | Outpatient (CLI) | payer BC ==
[~2020-09-14] MED LIST changes: +AMPICILLIN SODIU2 G1 IV
[2020-09-15 09:23] LABS: BASOPHILS ABSOLUTE AUTO 0.03 K/mm3 (0.00-0.23); BASOPHILS PERCENT AUTO 0 % (0-2); EOSINOPHILS ABSOLUTE AUTO 0.51 K/mm3 (0.00-0.68); EOSINOPHILS PERCENT AUTO 5 % (0-6); Hematocrit 30.1 % (33.0-51.0); Hemoglobin 9.1 g/dL (11.5-16.0); IMMATURE GRAN ABSOLUTE AUTO 0.03 K/mm3 (0.00-0.10); IMMATURE GRAN PERCENT AUTO 0 % (0-1); LYMPHOCYTES ABSOLUTE AUTO 2.37 K/mm3 (0.84-5.20); LYMPHOCYTES PERCENT AUTO 24 % (21-46); MONOCYTES PERCENT AUTO 4 % (4-13); Mean Corpuscular HGB 26.3 pg (26.0-34.0); Mean Corpuscular HGB Conc 30.2 g/dL (31.5-36.5); Mean Corpuscular Volume 87 fL (80-100); Mean Platelet Volume 9.7 fL (9.1-12.4); NEUTROPHILS ABSOLUTE AUTO 6.58 K/mm3 (1.96-9.15); NEUTROPHILS PERCENT AUTO 66 % (41-73); Platelet Count 392 K/mm3 (150-400); RDW Coefficient Variation 15.1 % (11.7-14.2); RDW Standard Deviation 47.7 fL (35.1-46.3); Red Blood Cell Count 3.46 M/mm3 (3.80-5.20); White Blood Cell Count 9.92 K/mm3 (4.00-11.30)
[2020-09-15 11:13] LABS: Alanine Aminotransfer (ALT/SGP 35 U/L (12-78); Albumin, Blood 3.1 g/dL (3.4-5.0); Albumin/Globulin Ratio 0.9 (0.8-1.8); Alk Phos 91 U/L (50-136); Anion Gap 8 mmol/L (6-16); Aspartate Aminotrans (AST/SGOT 20 U/L (12-37); Bilirubin, Total 0.2 mg/dL (0.1-1.0); Blood Urea Nitrogen 13 mg/dL (8-24); Bun/Creatinine Ratio 19.2 (12.0-20.0); CO2, Blood 26 mmol/L (21-32); Calcium, Blood 8.9 mg/dL (8.5-10.1); Chloride, Blood 106 mmol/L (98-108); Creatinine, Blood 0.68 mg/dL (0.40-1.00); Globulin, Blood 3.4 g/dL (2.2-4.0); Glomerular Filtration Rate >60 (60-); Glucose, Blood 85 mg/dL (70-99); Potassium, Blood 4.4 mmol/L (3.5-5.5); Sodium, Blood 140 mmol/L (136-145); Total Protein, Blood 6.5 g/dL (6.4-8.2)
== END | disposition home or self-care (01) ==
LOC: LAB SHORT 18:42 → LAB 18:42
PROVIDERS: Internal Medicine Infectious Disease
DX: T84.52XA Infection and inflammatory reaction due to internal left hip prosthesis, initial encounter (principal); B95.2 Enterococcus as the cause of diseases classified elsewhere
CPT/HCPCS: 80053; 85025; 85651; 86140

== ENCOUNTER → 2020-09-20 | Outpatient (CLI) | payer BC ==
[2020-09-20 16:39] LABS: BASOPHILS ABSOLUTE AUTO 0.03 K/mm3 (0.00-0.23); BASOPHILS PERCENT AUTO 0 % (0-2); EOSINOPHILS ABSOLUTE AUTO 0.38 K/mm3 (0.00-0.68); EOSINOPHILS PERCENT AUTO 6 % (0-6); Hematocrit 30.3 % (33.0-51.0); IMMATURE GRAN ABSOLUTE AUTO 0.01 K/mm3 (0.00-0.10); IMMATURE GRAN PERCENT AUTO 0 % (0-1); LYMPHOCYTES ABSOLUTE AUTO 2.13 K/mm3 (0.84-5.20); LYMPHOCYTES PERCENT AUTO 32 % (21-46); MONOCYTES PERCENT AUTO 5 % (4-13); Mean Corpuscular HGB 25.9 pg (26.0-34.0); Mean Corpuscular HGB Conc 29.7 g/dL (31.5-36.5); Mean Corpuscular Volume 87 fL (80-100); Mean Platelet Volume 9.2 fL (9.1-12.4); NEUTROPHILS ABSOLUTE AUTO 3.86 K/mm3 (1.96-9.15); NEUTROPHILS PERCENT AUTO 58 % (41-73); Platelet Count 438 K/mm3 (150-400); RDW Coefficient Variation 14.8 % (11.7-14.2); RDW Standard Deviation 46.8 fL (35.1-46.3); Red Blood Cell Count 3.47 M/mm3 (3.80-5.20); White Blood Cell Count 6.71 K/mm3 (4.00-11.30)
[2020-09-20 16:52] LABS: Alanine Aminotransfer (ALT/SGP 42 U/L (12-78); Albumin, Blood 3.2 g/dL (3.4-5.0); Albumin/Globulin Ratio 0.8 (0.8-1.8); Alk Phos 116 U/L (50-136); Anion Gap 5 mmol/L (6-16); Aspartate Aminotrans (AST/SGOT 24 U/L (12-37); Bilirubin, Total 0.2 mg/dL (0.1-1.0); Blood Urea Nitrogen 12 mg/dL (8-24); CO2, Blood 28 mmol/L (21-32); Calcium, Blood 9.1 mg/dL (8.5-10.1); Chloride, Blood 108 mmol/L (98-108); Creatinine, Blood 0.71 mg/dL (0.40-1.00); Globulin, Blood 3.8 g/dL (2.2-4.0); Glomerular Filtration Rate >60 (60-); Glucose, Blood 99 mg/dL (70-99); Potassium, Blood 3.6 mmol/L (3.5-5.5); Sodium, Blood 141 mmol/L (136-145)
== END ==
LOC: LAB SHORT 14:50 → LAB 14:50
PROVIDERS: Internal Medicine Infectious Disease
DX: T84.52XA Infection and inflammatory reaction due to internal left hip prosthesis, initial encounter (principal); B95.2 Enterococcus as the cause of diseases classified elsewhere
CPT/HCPCS: 80053; 85025

== ENCOUNTER → 2020-09-28 | Outpatient (CLI) | payer BC | LOC: LAB SHORT 15:12 → LAB SRC 15:12 | DX: T84.52XA Infection and inflammatory reaction due to internal left hip prosthesis, initial encounter (principal) | CPT/HCPCS: 85651; 86140 ==

== ENCOUNTER 2020-10-20 15:02 | Day surgery (SDC) | payer BC | END 2020-10-20 15:45 | disposition home or self-care (01) | LOC: ATC 15:02 | DX: T84.52XA Infection and inflammatory reaction due to internal left hip prosthesis, initial encounter (principal); E66.9 Obesity, unspecified; Z88.8 Allergy status to other drugs, medicaments and biological substances; Z68.37 Body mass index [BMI] 37.0-37.9, adult; Z87.891 Personal history of nicotine dependence | CPT/HCPCS: 99212 ==

== ENCOUNTER 2021-02-21 13:06 | Emergency (ER) | payer BC ==
[~2021-02-21] VITALS: Ht 177.8 cm; Wt 122.5 kg
[2021-02-21 13:49] LABS: BASOPHILS ABSOLUTE AUTO 0.03 K/mm3 (0.00-0.23); BASOPHILS PERCENT AUTO 0 % (0-2); EOSINOPHILS ABSOLUTE AUTO 0.39 K/mm3 (0.00-0.68); EOSINOPHILS PERCENT AUTO 5 % (0-6); Hematocrit 38.5 % (33.0-51.0); Hemoglobin 11.7 g/dL (11.5-16.0); IMMATURE GRAN ABSOLUTE AUTO 0.02 K/mm3 (0.00-0.10); IMMATURE GRAN PERCENT AUTO 0 % (0-1); LYMPHOCYTES ABSOLUTE AUTO 2.28 K/mm3 (0.84-5.20); LYMPHOCYTES PERCENT AUTO 27 % (21-46); MONOCYTES ABSOLUTE AUTO 0.37 K/mm3 (0.16-1.47); MONOCYTES PERCENT AUTO 4 % (4-13); Mean Corpuscular HGB 24.6 pg (26.0-34.0); Mean Corpuscular HGB Conc 30.4 g/dL (31.5-36.5); Mean Corpuscular Volume 81 fL (80-100); Mean Platelet Volume 9.3 fL (9.1-12.4); NEUTROPHILS ABSOLUTE AUTO 5.49 K/mm3 (1.96-9.15); NEUTROPHILS PERCENT AUTO 64 % (41-73); Platelet Count 376 K/mm3 (150-400); RDW Coefficient Variation 16.5 % (11.7-14.2); RDW Standard Deviation 48.6 fL (35.1-46.3); Red Blood Cell Count 4.76 M/mm3 (3.80-5.20); White Blood Cell Count 8.58 K/mm3 (4.00-11.30)
[2021-02-21 13:59] LABS: Source, Urine Catheter
[2021-02-21 14:06] LABS: Appearance, Urine Clear (Clear); Bilirubin, Urine Neg (Neg); Blood, Urine 5+ (Neg); Color, Urine Yellow (P-Yellow); Glucose Qualitative, Urine Neg (Neg); Ketones, Urine Neg (Neg); Leukocyte Esterase, Urine 3+ (Neg); Nitrite, Urine Neg (Neg); Protein, Urine Neg (Neg); Urobilinogen, Urine NORM (Normal)
[2021-02-21 14:10] LABS: International Normalized Ratio 0.98; Prothrombin Time Results 10.6 Sec (9.7-11.5)
[2021-02-21 14:12] LABS: Alanine Aminotransfer (ALT/SGP 23 U/L (12-78); Albumin, Blood 3.9 g/dL (3.4-5.0); Alk Phos 114 U/L (50-136); Anion Gap 4 mmol/L (6-16); Aspartate Aminotrans (AST/SGOT 12 U/L (12-37); Bilirubin, Total 0.3 mg/dL (0.1-1.0); Blood Urea Nitrogen 14 mg/dL (8-24); CO2, Blood 29 mmol/L (21-32); Chloride, Blood 110 mmol/L (98-108); Glomerular Filtration Rate >60 (60-); Glucose, Blood 88 mg/dL (70-99); Potassium, Blood 3.5 mmol/L (3.5-5.5); Sodium, Blood 143 mmol/L (136-145); Total Protein, Blood 7.9 g/dL (6.4-8.2)
[2021-02-21 14:15] LABS: Amorphous Light (0-Heavy); Bacteria Few /hpf; Mucus Light (0-Heavy); Red Blood Cells, Urine 25-50 /hpf (0-2); Renal Epithelial Rare /hpf (0-Rare); Squamous Epithelial Cells Mod /hpf (Few); Transitional Epithelial Cells Few /hpf (0-Rare)
== END 2021-02-21 16:17 | disposition home or self-care (01) ==
LOC: ER 13:06
PROVIDERS: Physician Assistant
DX: M25.552 Pain in left hip (principal); Z91.09 Other allergy status, other than to drugs and biological substances
CPT/HCPCS: 36415; 73502; 80053; 81001; 83605; 85025; 85610; 85730; 86141; 87086; 93005; 93010; 99285-25

== ENCOUNTER → 2023-03-03 | Outpatient (CLI) | payer BC | END | disposition home or self-care (01) | LOC: LAB SHORT 13:07 → LAB 13:07 | DX: N92.0 Excessive and frequent menstruation with regular cycle (principal) | CPT/HCPCS: 88305 ==

== ENCOUNTER 2023-04-20 11:43 | Day surgery (SDC) | payer BC ==
[~2023-04-20] VITALS: Ht 177.8 cm; Wt 116.8 kg
[2023-04-20] MEDS ORDERED: ESCI10 PO (12:11)
[2023-04-20] MEDS ORDERED: FISH OIL 1,2001 EAC7 PO (12:12)
--- NOTE | 2023-04-20 13:28 | NUR ---
04/20/23 1328 Deandra De La Rosa HYSTEROSCOPY DEFICIT 110ML, SURGEON AWARE
--- NOTE | 2023-04-20 13:45 | NUR ---
04/20/23 1345 ANDREY FLORES REMOVED BY [facility].JXP AT 1340..
--- NOTE | 2023-04-20 13:58 | NUR ---
04/20/23 1358 ANDREY FLORES ADMINISTERED FENTANYL 50MCGS FOR RATING PAIN 6/10 IN ABD AREA, CRAMPING. PT VSS.
[2023-04-20 15:06] VITALS: BP 125/86
== END 2023-04-20 14:50 | disposition home or self-care (01) ==
LOC: ORSCSDS 11:43
PROVIDERS: Obstetrics & Gynecology
PROC: 0U5B8ZZ Destruction of Endometrium, Via Natural or Artificial Opening Endoscopic (ICD-10-PCS; principal; 2023-04-20 13:00)
DX: N92.4 Excessive bleeding in the premenopausal period (principal); D25.9 Leiomyoma of uterus, unspecified; E28.2 Polycystic ovarian syndrome; E66.9 Obesity, unspecified; Z68.37 Body mass index [BMI] 37.0-37.9, adult; F17.290 Nicotine dependence, other tobacco product, uncomplicated; Z79.899 Other long term (current) drug therapy
CPT/HCPCS: A9270; J1100; J1885; J2250; J2405; J2704; J3010; J7120

== ENCOUNTER → 2023-07-24 | Outpatient (CLI) | payer BC ==
[~2023-07-24] MED LIST changes: +ESCI10 PO; +FISH OIL 1,2001 EAC7 PO
[2023-07-24 11:53] LABS: BASOPHILS ABSOLUTE AUTO 0.03 K/mm3 (0.00-0.23); BASOPHILS PERCENT AUTO 0 % (0-2); EOSINOPHILS ABSOLUTE AUTO 0.01 K/mm3 (0.00-0.68); EOSINOPHILS PERCENT AUTO 0 % (0-6); Hematocrit 42.2 % (33.0-51.0); IMMATURE GRAN ABSOLUTE AUTO 0.07 K/mm3 (0.00-0.10); IMMATURE GRAN PERCENT AUTO 1 % (0-1); LYMPHOCYTES ABSOLUTE AUTO 0.82 K/mm3 (0.84-5.20); LYMPHOCYTES PERCENT AUTO 6 % (21-46); MONOCYTES ABSOLUTE AUTO 0.36 K/mm3 (0.16-1.47); MONOCYTES PERCENT AUTO 3 % (4-13); Mean Corpuscular HGB 28.2 pg (26.0-34.0); Mean Corpuscular HGB Conc 33.2 g/dL (31.5-36.5); Mean Corpuscular Volume 85 fL (80-100); Mean Platelet Volume 9.3 fL (9.1-12.4); NEUTROPHILS ABSOLUTE AUTO 11.89 K/mm3 (1.96-9.15); NEUTROPHILS PERCENT AUTO 90 % (41-73); Platelet Count 288 K/mm3 (150-400); RDW Coefficient Variation 13.7 % (11.7-14.2); RDW Standard Deviation 42.6 fL (35.1-46.3); Red Blood Cell Count 4.96 M/mm3 (3.80-5.20); White Blood Cell Count 13.18 K/mm3 (4.00-11.30)
[2023-07-24 12:10] LABS: Albumin, Blood 3.9 g/dL (3.4-5.0); Bilirubin, Total 1.2 mg/dL (0.1-1.0); Bun/Creatinine Ratio 10.7 (12.0-20.0); Calcium, Blood 9.3 mg/dL (8.5-10.1); Creatinine, Blood 1.03 mg/dL (0.40-1.00); Potassium, Blood 3.5 mmol/L (3.5-5.5); Total Protein, Blood 7.9 g/dL (6.4-8.2)
== END ==
LOC: LAB 11:50 → LAB SHORT 11:50
PROVIDERS: Physician Assistant
DX: R50.9 Fever, unspecified (principal); R06.00 Dyspnea, unspecified
CPT/HCPCS: 80053; 83605; 85025; 85379; 85651

== ENCOUNTER → 2023-07-25 | Outpatient (CLI) | payer BC ==
[2023-07-25 08:42] LABS: BASOPHILS ABSOLUTE AUTO 0.03 K/mm3 (0.00-0.23); BASOPHILS PERCENT AUTO 0 % (0-2); EOSINOPHILS ABSOLUTE AUTO 0.09 K/mm3 (0.00-0.68); EOSINOPHILS PERCENT AUTO 1 % (0-6); Hematocrit 40.9 % (33.0-51.0); Hemoglobin 13.4 g/dL (11.5-16.0); IMMATURE GRAN PERCENT AUTO 1 % (0-1); LYMPHOCYTES ABSOLUTE AUTO 0.81 K/mm3 (0.84-5.20); LYMPHOCYTES PERCENT AUTO 7 % (21-46); MONOCYTES PERCENT AUTO 5 % (4-13); Mean Corpuscular HGB 28.4 pg (26.0-34.0); Mean Corpuscular HGB Conc 32.8 g/dL (31.5-36.5); Mean Corpuscular Volume 87 fL (80-100); Mean Platelet Volume 9.3 fL (9.1-12.4); NEUTROPHILS ABSOLUTE AUTO 10.91 K/mm3 (1.96-9.15); NEUTROPHILS PERCENT AUTO 87 % (41-73); Platelet Count 256 K/mm3 (150-400); RDW Coefficient Variation 13.9 % (11.7-14.2); RDW Standard Deviation 44.2 fL (35.1-46.3); Red Blood Cell Count 4.72 M/mm3 (3.80-5.20); White Blood Cell Count 12.54 K/mm3 (4.00-11.30)
== END | disposition home or self-care (01) ==
LOC: LAB 08:37 → LAB SHORT 08:37
PROVIDERS: Physician Assistant
DX: R50.9 Fever, unspecified (principal)
CPT/HCPCS: 85025

== ENCOUNTER 2024-07-01 00:12 | Emergency (ER) | payer BC ==
[~2024-07-01] VITALS: Ht 177.8 cm; Wt 99.8 kg
[2024-07-01 02:19] LABS: BASOPHILS ABSOLUTE AUTO 0.04 K/mm3 (0.00-0.23); BASOPHILS PERCENT AUTO 1 % (0-2); EOSINOPHILS ABSOLUTE AUTO 0.16 K/mm3 (0.00-0.68); EOSINOPHILS PERCENT AUTO 2 % (0-6); Hematocrit 36.8 % (33.0-51.0); Hemoglobin 11.8 g/dL (11.5-16.0); IMMATURE GRAN ABSOLUTE AUTO 0.01 K/mm3 (0.00-0.10); IMMATURE GRAN PERCENT AUTO 0 % (0-1); LYMPHOCYTES ABSOLUTE AUTO 2.77 K/mm3 (0.84-5.20); LYMPHOCYTES PERCENT AUTO 35 % (21-46); MONOCYTES PERCENT AUTO 5 % (4-13); Mean Corpuscular HGB 28.2 pg (26.0-34.0); Mean Corpuscular HGB Conc 32.1 g/dL (31.5-36.5); Mean Corpuscular Volume 88 fL (80-100); Mean Platelet Volume 9.3 fL (9.1-12.4); NEUTROPHILS ABSOLUTE AUTO 4.55 K/mm3 (1.96-9.15); NEUTROPHILS PERCENT AUTO 58 % (41-73); Platelet Count 281 K/mm3 (150-400); RDW Coefficient Variation 13.2 % (11.7-14.2); RDW Standard Deviation 42.5 fL (35.1-46.3); Red Blood Cell Count 4.18 M/mm3 (3.80-5.20); White Blood Cell Count 7.93 K/mm3 (4.00-11.30)
[2024-07-01] MEDS ORDERED: Ketorolac Tromethamine 30mg Vial IV ONE (02:35)
[2024-07-01 02:37] LABS: Albumin, Blood 3.3 g/dL (3.4-5.0); Bilirubin, Total 0.6 mg/dL (0.1-1.0); Bun/Creatinine Ratio 18.9 (12.0-20.0); Calcium, Blood 8.5 mg/dL (8.5-10.1); Creatinine, Blood 0.69 mg/dL (0.40-1.00); Globulin, Blood 3.4 g/dL (2.2-4.0); Potassium, Blood 3.6 mmol/L (3.5-5.5); Total Protein, Blood 6.7 g/dL (6.4-8.2)
[2024-07-01 03:03] LABS: Source, Urine Clean Catch
[2024-07-01 03:06] LABS: Bilirubin, Urine Neg (Neg); Blood, Urine Neg (Neg); Glucose Qualitative, Urine Neg (Neg); Ketones, Urine Neg (Neg); Leukocyte Esterase, Urine 1+ (Neg); Nitrite, Urine Neg (Neg); Protein, Urine 1+ (Neg); Urobilinogen, Urine NORM (Normal)
[2024-07-01 03:10] LABS: Color, Urine Yellow (P-Yellow)
[2024-07-01 03:15] LABS: Appearance, Urine Clear (Clear)
[2024-07-01 03:17] LABS: Amorphous Light (0-Heavy); Bacteria Few /hpf; Mucus Light (0-Heavy); Red Blood Cells, Urine Not Seen /hpf (0-2); Squamous Epithelial Cells Few /hpf (Few); White Blood Cells, Urine 0-2 /hpf (0-5)
[2024-07-01 05:10] VITALS: BP 109/85
== END 2024-07-01 05:09 | disposition home or self-care (01) ==
LOC: ER 00:12
PROVIDERS: Student in an Organized Health Care Education/Training Program
DX: R10.31 Right lower quadrant pain (principal); I34.0 Nonrheumatic mitral (valve) insufficiency; M19.90 Unspecified osteoarthritis, unspecified site; F17.200 Nicotine dependence, unspecified, uncomplicated; Z90.49 Acquired absence of other specified parts of digestive tract; Z96.643 Presence of artificial hip joint, bilateral; Z91.048 Other nonmedicinal substance allergy status; Z79.899 Other long term (current) drug therapy
CPT/HCPCS: 74177; 80053; 81001; 83690; 84703; 85025; 96374-59; 99284-25; J1885; Q9967

== ENCOUNTER → 2025-03-28 | Outpatient (CLI) | payer BC ==
[2025-03-28 17:00] LABS: BASOPHILS ABSOLUTE AUTO 0.01 K/mm3 (0.00-0.23); BASOPHILS PERCENT AUTO 0 % (0-2); EOSINOPHILS ABSOLUTE AUTO 0.03 K/mm3 (0.00-0.68); EOSINOPHILS PERCENT AUTO 0 % (0-6); Hematocrit 40.8 % (33.0-51.0); Hemoglobin 13.2 g/dL (11.5-16.0); IMMATURE GRAN ABSOLUTE AUTO 0.04 K/mm3 (0.00-0.10); IMMATURE GRAN PERCENT AUTO 0 % (0-1); LYMPHOCYTES ABSOLUTE AUTO 1.68 K/mm3 (0.84-5.20); LYMPHOCYTES PERCENT AUTO 18 % (21-46); MONOCYTES ABSOLUTE AUTO 0.34 K/mm3 (0.16-1.47); MONOCYTES PERCENT AUTO 4 % (4-13); Mean Corpuscular HGB 28.4 pg (26.0-34.0); Mean Corpuscular HGB Conc 32.4 g/dL (31.5-36.5); Mean Corpuscular Volume 88 fL (80-100); NEUTROPHILS ABSOLUTE AUTO 7.06 K/mm3 (1.96-9.15); NEUTROPHILS PERCENT AUTO 77 % (41-73); Platelet Count 315 K/mm3 (150-400); RDW Coefficient Variation 12.6 % (11.7-14.2); RDW Standard Deviation 40.6 fL (35.1-46.3); Red Blood Cell Count 4.64 M/mm3 (3.80-5.20); White Blood Cell Count 9.16 K/mm3 (4.00-11.30)
[2025-03-28 20:08] LABS: Albumin, Blood 4.2 g/dL (3.4-5.0); Bilirubin, Total 0.9 mg/dL (0.1-1.0); Bun/Creatinine Ratio 12.3 (12.0-20.0); Calcium, Blood 9.9 mg/dL (8.5-10.1); Creatinine, Blood 0.82 mg/dL (0.40-1.00); Potassium, Blood 3.7 mmol/L (3.5-5.5); Total Protein, Blood 8.2 g/dL (6.4-8.2)
[2025-03-31 11:15] LABS: HIV 1,2 COMBO ANTIGEN/ANTIBODY Negative (Negative)
[2025-03-31 13:00] LABS: HEPATITIS A ANTIBODY, IGM Negative (Negative); HEPATITIS B CORE ANTIBODY, IGM Negative (Negative); HEPATITIS B SURFACE ANTIGEN Negative (Negative); HEPATITIS C AB CIA INTERP Negative (Negative); HEPATITIS C ANTIBODY CIA INDEX 0.11 IV
== END | disposition home or self-care (01) ==
LOC: LAB SHORT 15:45 → LAB 15:45
PROVIDERS: Physician Assistant
DX: Z20.6 Contact with and (suspected) exposure to human immunodeficiency virus [HIV] (principal)
CPT/HCPCS: 80053; 80074; 85025; 86592; 87389